=== PATIENT | male | born 1985 | race Asian ===

== ENCOUNTER 2016-04-03 13:54 | Emergency (ER) | payer OTHER ==
--- NOTE | 2016-04-03 15:35 | EDDOCDS ---
Nurse's Notes [facility] Name: Rasheeda Kramer Age: 31 yrs Sex: Male : 1985 Arrival Date: 04/03/2016 Time: 13:54 Bed TR7 Private MD: Memo Johnson [facility] Diagnosis: Low back pain Presentation: 04/03 14:03 Presenting complaint: Patient states: low back pain, chronic, worse this morning after the [facility] carrying rocks. Adult Sepsis Screening: The patient does not have new or worsening altered mentation. Patient's respiratory rate is less than 22. Systolic blood pressure is greater than 100. Patient has a qSOFA score of 0- Negative Sepsis Screen. Suicide/Homicide risk assessment- the patient denies having any suicidal and/or homicidal ideations and does not present with any other emotional, behavioral or mental health complaints. 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 Transition of care: patient was not received from another setting of care. 14:03 Acuity: SNEHA Level 4 the [facility] 14:03 Method Of Arrival: Walkin/Carried/Asstd the [facility] Triage Assessment: 14:04 General: Appears in no apparent distress, comfortable, Behavior is appropriate for age, the [facility] cooperative. Pain: Location: back Pain currently is 8 out of 10 on a pain scale. HIV screening NA for this visit Offered previously. Respiratory: Airway is patent Respiratory effort is even, unlabored, Respiratory pattern is regular, symmetrical. Derm: Skin is pink, warm & dry. Musculoskeletal: Range of motion intact in all extremities. Historical: - Allergies: no known allergies; - Home Meds: 1. sleeping pill Unknown nightly as needed - PMHx: none; - PSHx: none; - Social history: Smoking status: Patient states was never smoker of tobacco. No barriers to communication noted. - Family history: Not pertinent. - : The pt / caregiver states he / she is not on anticoagulants. Home medication list is obtained from the patient. - Exposure Risk Screening:: None identified. Screenin:18 Screening information is obtained from the patient. Fall risk: No risks identified. ld5 Assistance ADL's: requires no assistance with activities of daily living. Abuse/DV Screen: The patient / caregiver reports he/she is: not in a situation that causes fear, pain or injury. Nutritional screening: No deficits noted. Advance Directives: Currently, there is no health care proxy. home support is adequate. Assessment: 15:18 General: Appears in no apparent distress. Pain: Location: low back area Pain currently ld5 is 8 out of 10 on a pain scale. Neurological: Level of Consciousness is awake, alert. Respiratory: Airway is patent Respiratory effort is even, unlabored. Vital Signs: 13:56 BP 166 / 97; Pulse 77; Resp 18; Temp 96.6(O); Pulse Ox 97% on R/A; Weight 65.77 kg; sew Height 5 ft. 5 in. (165.10 cm); Pain 8/10; 15:18 BP 151 / 96; ld5 13:56 Body Mass Index 24.13 (65.77 kg, 165.10 cm) [facility] Vitals: 13:56 Log In Time: April 03, 2016 at 13:54. [facility] [place] Course: 13:55 Patient visited by Anita Yee. sew 13:55 Patient moved to Waiting [facility] 13:56 [facility] is Private Physician. [facility] 13:56 Patient visited by Anita Yee. sew 13:56 Patient moved to Pre RCE sew 14:04 Triage Initiated cj 14:58 [facility] btw 14:58 Benson Fernandez MD is Attending Physician. btw 14:58 Patient visited by Mio Glover PA. btw 14:58 Patient moved to Triage 2 ml6 15:12 [facility] is Referral Physician. btw 15:18 The patient / caregiver is instructed regarding the plan of care and ED course. Patient ld5 has correct armband on for positive identification. 15:18 No IV's were initiated during this patient's visit. No procedures done that require ld5 assistance. 15:20 Patient visited by Yudi Martinez RN. ld5 15:26 Patient moved to TR7 ld5 Order Results: There are currently no results for this order. Outcome: 15:12 Discharge ordered by Provider. btw 15:18 No special radiology studies were completed. ld5 15:33 Discharge Assessment: patient administered narcotics - no. The following High Risk ml6 Discharge criteria are identified: None. Discharged to home ambulatory. Condition: stable. Discharge instructions given to patient, Instructed on discharge instructions, follow up and referral plans. medication usage, Demonstrated understanding of instructions, medications, Pt was receptive of discharge instructions/ teaching. Prescriptions given X 2. Property sent home with patient. :Personal belongings accompany Pt. 15:33 Patient left the ED. ml6 Signatures: Jesse Garza, RN RN ml6 Mio Glover PA PA btw Dickerson, Laura,RN RN ld5 Hyacinth ResendizRN RN [facility] Anita Yee MTDD
--- NOTE | 2016-04-03 15:35 | EDDOCDS ---
Physician Documentation [facility] Name: Rasheeda Kramer Age: 31 yrs Sex: Male : 1985 Arrival Date: 04/03/2016 Time: 13:54 Bed TR7 Private MD: Memo Johnson [facility] Disposition: 04/03/16 15:12 Discharged to Home/Self Care. Impression: Low back pain. - Condition is Stable. - Discharge Instructions: Back Injury Prevention, Qeao-cb-[id number], Back Pain, Adult, Gtnp-vm-Fiyg. - Prescriptions for Diclofenac Sodium 75 mg Oral Tablet, Delayed Release (E.C.) - take 1 tablet by ORAL route 2 times per day; 30 tablet. Robaxin- 750 750 mg Oral Tablet - take 1 tablet by ORAL route every 6 hours As needed; 40 tablet. - Medication Reconciliation, Local Pharmacy Hours form. - Follow up: Memo Johnson [facility]; When: 2 - 3 days; Reason: Further diagnostic work-up, Recheck today's complaints, Continuance of care. - Problem is an acute exacerbation. - Symptoms are unchanged. Historical: - Allergies: no known allergies; - Home Meds: 1. sleeping pill Unknown nightly as needed - PMHx: none; - PSHx: none; - Social history: Smoking status: Patient states was never smoker of tobacco. No barriers to communication noted. - Family history: Not pertinent. - : The pt / caregiver states he / she is not on anticoagulants. Home medication list is obtained from the patient. - Exposure Risk Screening:: None identified. Vital Signs: 04/03 13:56 BP 166 / 97; Pulse 77; Resp 18; Temp 96.6(O); Pulse Ox 97% on R/A; Weight 65.77 kg / sew 145 lbs; Height 5 ft. 5 in. (165.10 cm); Pain 8/10; 15:18 BP 151 / 96; ld5 13:56 Body Mass Index 24.13 (65.77 kg, 165.10 cm) sew Signatures: Jesse Garza, RN RN ml6 Mio Glover PA PA btw Dickerson, LauraRN RN ld5 Hyacinth Resendiz RN RN cjh MTDD
--- NOTE | 2016-04-07 09:18 | EDDOCDS ---
Physician Documentation [facility] Name: Rasheeda Leggett Age: 31 yrs Sex: Male : 1985 Arrival Date: 04/03/2016 Time: 13:54 Bed TR7 Private MD: Memo Johnson [facility] Disposition: 04/03/16 15:12 Discharged to Home/Self Care. Impression: Low back pain. - Condition is Stable. - Discharge Instructions: Back Injury Prevention, Aalw-sy-Vfpm, Back Pain, Adult, Mhdu-ki-Ycgh. - Prescriptions for Diclofenac Sodium 75 mg Oral Tablet, Delayed Release (E.C.) - take 1 tablet by ORAL route 2 times per day; 30 tablet. Robaxin- 750 750 mg Oral Tablet - take 1 tablet by ORAL route every 6 hours As needed; 40 tablet. - Medication Reconciliation, Local Pharmacy Hours form. - Follow up: Memo Johnson [facility]; When: 2 - 3 days; Reason: Further diagnostic work-up, Recheck today's complaints, Continuance of care. - Problem is an acute exacerbation. - Symptoms are unchanged. Historical: - Allergies: no known allergies; - Home Meds: 1. sleeping pill Unknown nightly as needed - PMHx: none; - PSHx: none; - Social history: Smoking status: Patient states was never smoker of tobacco. No barriers to communication noted. - Family history: Not pertinent. - : The pt / caregiver states he / she is not on anticoagulants. Home medication list is obtained from the patient. - Exposure Risk Screening:: None identified. Vital Signs: 04/03 13:56 BP 166 / 97; Pulse 77; Resp 18; Temp 96.6(O); Pulse Ox 97% on R/A; Weight 65.77 kg / sew 145 lbs; Height 5 ft. 5 in. (165.10 cm); Pain 8/10; 15:18 BP 151 / 96; ld5 13:56 Body Mass Index 24.13 (65.77 kg, 165.10 cm) sew MDM: 15:42 [facility] Payment Agreement was scanned into [employer] and attached to record. 04/04 09:15 T-Sheet-- Draft Copy was scanned into [employer] and attached to record. [facility] Signatures: Prosper Vásquez, Reg Reg Jesse Garza RN RN ml6 Mio Glover PA PA btw Yudi Martinez RN RN ld5 Hyacinth ResendizRN RN [facility] Anita Raymundo The chart was reviewed and I authenticate all verbal orders and agree with the evaluation and treatment provided.Attachments: 04/03 15:42 [facility] Payment Agreement lg 04/04 09:15 T-Sheet-- Draft Copy [facility] Chart Complete MTDD
--- NOTE | 2016-04-07 09:18 | EDDOCDS ---
Nurse's Notes [facility] Name: Rasheeda Leggett Age: 31 yrs Sex: Male : 1985 Arrival Date: 04/03/2016 Time: 13:54 Bed TR7 Private MD: Memo Johnson [facility] Diagnosis: Low back pain Presentation: 04/03 14:03 Presenting complaint: Patient states: low back pain, chronic, worse this morning after [facility] carrying rocks. Adult Sepsis Screening: The patient does not have new or worsening altered mentation. Patient's respiratory rate is less than 22. Systolic blood pressure is greater than 100. Patient has a qSOFA score of 0- Negative Sepsis Screen. Suicide/Homicide risk assessment- the patient denies having any suicidal and/or homicidal ideations and does not present with any other emotional, behavioral or mental health complaints. 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 Transition of care: patient was not received from another setting of care. 14:03 Acuity: SNEHA Level 4 [facility] 14:03 Method Of Arrival: Walkin/Carried/Asstd [facility] Triage Assessment: 14:04 General: Appears in no apparent distress, comfortable, Behavior is appropriate for age, [facility] cooperative. Pain: Location: back Pain currently is 8 out of 10 on a pain scale. HIV screening NA for this visit Offered previously. Respiratory: Airway is patent Respiratory effort is even, unlabored, Respiratory pattern is regular, symmetrical. Derm: Skin is pink, warm & dry. Musculoskeletal: Range of motion intact in all extremities. Historical: - Allergies: no known allergies; - Home Meds: 1. sleeping pill Unknown nightly as needed - PMHx: none; - PSHx: none; - Social history: Smoking status: Patient states was never smoker of tobacco. No barriers to communication noted. - Family history: Not pertinent. - : The pt / caregiver states he / she is not on anticoagulants. Home medication list is obtained from the patient. - Exposure Risk Screening:: None identified. Screenin:18 Screening information is obtained from the patient. Fall risk: No risks identified. ld5 Assistance ADL's: requires no assistance with activities of daily living. Abuse/DV Screen: The patient / caregiver reports he/she is: not in a situation that causes fear, pain or injury. Nutritional screening: No deficits noted. Advance Directives: Currently, there is no health care proxy. home support is adequate. Assessment: 15:18 General: Appears in no apparent distress. Pain: Location: low back area Pain currently ld5 is 8 out of 10 on a pain scale. Neurological: Level of Consciousness is awake, alert. Respiratory: Airway is patent Respiratory effort is even, unlabored. Vital Signs: 13:56 BP 166 / 97; Pulse 77; Resp 18; Temp 96.6(O); Pulse Ox 97% on R/A; Weight 65.77 kg; sew Height 5 ft. 5 in. (165.10 cm); Pain 8/10; 15:18 BP 151 / 96; ld5 13:56 Body Mass Index 24.13 (65.77 kg, 165.10 cm) [facility] Vitals: 13:56 Log In Time: April 03, 2016 at 13:54. [facility] ED Course: 13:55 Patient visited by Anita Yee. sew 13:55 Patient moved to Waiting [facility] 13:56 [facility] is Private Physician. sew 13:56 Patient visited by Anita Yee. sew 13:56 Patient moved to Pre RCE sew 14:04 Triage Initiated cj 14:58 [facility] btw 14:58 Benson Fernandez MD is Attending Physician. btw 14:58 Patient visited by Mio Glover PA. btw 14:58 Patient moved to Triage 2 ml6 15:12 [facility] is Referral Physician. btw 15:18 The patient / caregiver is instructed regarding the plan of care and ED course. Patient ld5 has correct armband on for positive identification. 15:18 No IV's were initiated during this patient's visit. No procedures done that require ld5 assistance. 15:20 Patient visited by Yudi Martinez RN. ld5 15:26 Patient moved to TR7 ld5 15:41 Patient name changed from Umah\S\Saravia\S\Jhndi\S\ to Umah\S\Saravia\S\Jhendi. EDMS 15:42 [facility] Payment Agreement was scanned into [employer] and attached to record. 04/04 09:15 T-Sheet-- Draft Copy was scanned into [employer] and attached to record. seh Order Results: There are currently no results for this order. Outcome: 04/03 15:12 Discharge ordered by Provider. btw 15:18 No special radiology studies were completed. ld5 15:33 Discharge Assessment: patient administered narcotics - no. The following High Risk ml6 Discharge criteria are identified: None. Discharged to home ambulatory. Condition: stable. Discharge instructions given to patient, Instructed on discharge instructions, follow up and referral plans. medication usage, Demonstrated understanding of instructions, medications, Pt was receptive of discharge instructions/ teaching. Prescriptions given X 2. Property sent home with patient. :Personal belongings accompany Pt. 15:33 Patient left the ED. ml6 Signatures: Dispatcher [employer] EDMS Prosper Vásquez, Zeus Reg lg Jesse Garza, RN RN ml6 Mio Glover PA PA btw Dickerson, Laura,RN RN ld5 Hyacinth Resendiz,RN RN lindsay Yee, Anita Barragan Chart Complete [facility]
--- NOTE | 2016-04-07 09:18 | EDDOCDS ---
Physician Documentation [facility] Name: Rasheeda Leggett Age: 31 yrs Sex: Male : 1985 Arrival Date: 04/03/2016 Time: 13:54 Bed TR7 Private MD: Memo Johnson [facility] Disposition: 04/03/16 15:12 Discharged to Home/Self Care. Impression: Low back pain. - Condition is Stable. - Discharge Instructions: Back Injury Prevention, Akbz-ti-Wzeu, Back Pain, Adult, Rkck-fa-Voxr. - Prescriptions for Diclofenac Sodium 75 mg Oral Tablet, Delayed Release (E.C.) - take 1 tablet by ORAL route 2 times per day; 30 tablet. Robaxin- 750 750 mg Oral Tablet - take 1 tablet by ORAL route every 6 hours As needed; 40 tablet. - Medication Reconciliation, Local Pharmacy Hours form. - Follow up: Memo Johnson [facility]; When: 2 - 3 days; Reason: Further diagnostic work-up, Recheck today's complaints, Continuance of care. - Problem is an acute exacerbation. - Symptoms are unchanged. Historical: - Allergies: no known allergies; - Home Meds: 1. sleeping pill Unknown nightly as needed - PMHx: none; - PSHx: none; - Social history: Smoking status: Patient states was never smoker of tobacco. No barriers to communication noted. - Family history: Not pertinent. - : The pt / caregiver states he / she is not on anticoagulants. Home medication list is obtained from the patient. - Exposure Risk Screening:: None identified. Vital Signs: 04/03 13:56 BP 166 / 97; Pulse 77; Resp 18; Temp 96.6(O); Pulse Ox 97% on R/A; Weight 65.77 kg / sew 145 lbs; Height 5 ft. 5 in. (165.10 cm); Pain 8/10; 15:18 BP 151 / 96; ld5 13:56 Body Mass Index 24.13 (65.77 kg, 165.10 cm) sew MDM: 15:42 [facility] Payment Agreement was scanned into [employer] and attached to record. 04/04 09:15 T-Sheet-- Draft Copy was scanned into [employer] and attached to record. [facility] Signatures: Prosper Vásquez, Reg Reg Jesse Garza RN RN ml6 Mio Glover PA PA btw Yudi Martinez RN RN ld5 Hyacinth ResendizRN RN [facility] Anita Raymundo The chart was reviewed and I authenticate all verbal orders and agree with the evaluation and treatment provided.Attachments: 04/03 15:42 [facility] Payment Agreement lg 04/04 09:15 T-Sheet-- Draft Copy [facility] Chart Complete MTDD
== END 2016-04-03 16:33 | disposition home or self-care (01) ==
LOC: M ED 13:54
DX: M54.5 Low back pain (principal)